=== PATIENT | male | born 1940 | race Caucasian/White ===

== ENCOUNTER → 2018-11-24 | Outpatient (CLI) | payer OTHER ==
[2018-11-24 16:23] LABS: Blood Urea Nitrogen 17 mg/dL (9-20)
--- NOTE | 2018-11-25 13:23 | CT ---
EXAMINATION TYPE: CT abdomen pelvis w con DATE OF EXAM: 11/24/2018 COMPARISON: MRCP 08/02/2014 HISTORY: 78-year-old male abnormal weight loss TECHNIQUE: Contiguous axial scanning of the abdomen and pelvis following administration of 100 ml Iso amber 300 IV contrast. Delayed images through the kidneys and coronal/sagittal reconstructions perform ed. CT DLP: 935.2 mGycm Automated exposure control for dose reduction was used. FINDINGS: Heart normal size without pericardial effusion. Tiny hiatal hernia. No focal liver lesion. 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 Portal venous system is patent. Some patulous jejunal loops just beyond the gastrojejunostomy measure up to 3.7 cm, probably chronic postoperative change. Adrenal glands, right kidney, and spleen appear within normal limits. 5 mm nonobstructive left lower pole renal calculus. Unremarkable appearance to the residual pancreatic body and tail. Scattered nonenlarged and borderline sized lymph nodes are present in the upper abdomen measuring up to 7 mm in the mid mesentery similar prominent lymph nodes appear to have been present back on the pa debra's 08/02/2014 MRI. There is a high riding cecum with moderate stool within. No pericolonic inflammatory change. No other dilated small bowel. No free fluid or free air. Tiny fatty umbilical hernia. Circumferential bladder wall thickening. Prostate gland measures 5.0 cm wide. Patulous bilateral ingu inal canals. No abnormal fluid collection of pelvis or pelvic lymphadenopathy. Moderate atherosclerotic calcifications within the infrarenal abdominal aorta and iliac arteries. Bones: Mild degenerative changes at the hips. Facet arthropathy mid to lower lumbar spine. Degenerati ve disc disease mid to lower lumbar spine. Trace grade 1 anterolisthesis L4-L5. Trace grade 1 retroli sthesis at L3-L4. IMPRESSION: 1. PRIOR SURGERY IN THE UPPER ABDOMEN SEEMS TO REPRESENT A WHIPPLE PROCEDURE. THERE ARE SOME MILDLY D ISTENDED PROXIMAL JEJUNAL LOOPS JUST BEYOND THE GASTROJEJUNOSTOMY measuring up to 3.7 cm LIKELY CHRON IC POSTOPERATIVE CHANGE. NO EVIDENCE FOR BOWEL OBSTRUCTION. 2. SCATTERED NONENLARGED AND BORDERLINE SIZE LYMPH NODES WITHIN THE MESENTERY MEASURING UP TO 7 MM. T HESE SEEM TO BE RELATIVELY SIMILAR BACK TO THE PATIENT'S 2013 MRI. CONSIDER A PRECAUTIONARY 6 MONTH F OLLOW-UP CT TO REASSESS. DIRECT COMPARISON TO THE SAME IMAGING MODALITY WILL BE HELPFUL. 3. TINY HIATAL HERNIA AND TINY FATTY UMBILICAL HERNIA. 4. CIRCUMFERENTIAL BLADDER WALL THICKENING COULD REPRESENT CHRONIC BLADDER WALL HYPERTROPHY OR CYSTIT IS. CLINICALLY CORRELATE. PROSTATE GLAND IS MILDLY ENLARGED AT 5.0 CM WIDE.
== END | disposition home or self-care (01) ==
LOC: RADCTMAIN 15:32
PROVIDERS: ATTEND Family Medicine
DX: R63.4 Abnormal weight loss (principal)
CPT/HCPCS: 82565; 84520; 74177; 36415; Q9967

== ENCOUNTER 2020-09-10 09:59 | Day surgery (SDC) | payer MEDICARE, OTHER ==
[2020-09-09 08:36] VITALS: BMI 25.9
[~2020-09-10 09:59] MED LIST: LACTATED RINGERS 1,000 ML IV SCH; LIDOCAINE 1% (10MG/ML) FOR IV START INTRADERMA PRN
[2020-09-10 10:37] VITALS: RESP 16; TEMP 97.2
[2020-09-10] MEDS ORDERED: LIDOCAINE 1% (10MG/ML) FOR IV START INTRADERMA ONE (10:38)
[2020-09-10] MEDS ORDERED: LACTATED RINGERS 1,000 ML IV ONE (10:38)
[2020-09-10] MEDS ORDERED: LIDOCAINE 1% INJ 10MG/ML (20 ML MDV) ONE (10:47)
[2020-09-10] MEDS ORDERED: PROPOFOL 10 MG/ML 20 ML VIAL IV ONE (10:47)
--- NOTE | 2020-09-10 10:59 | P.PCN ---
Date of Procedure: 09/10/20 Procedure(s) Performed: BRIEF HISTORY: Patient is a 80-year-old, pleasant, white male scheduled for an upper endoscopy dilation as a part of evaluation of intermittent dysphagia to solids and hence is a 40 pack she the last 1 year duration. An upper endoscopy in June 2020. The impaction and was noted to have distal esophageal stricture.. PROCEDURE PERFORMED: Esophagogastroduodenoscopy with dilation. PREOPERATIVE DIAGNOSIS: Recent episode of food impaction and intermittent dysphagia to solids. IV sedation per anesthesia. PROCEDURE: After informed consent was obtained, the patient was brought into the endoscopy unit. IV sedation was administered by Anesthesia under continuous monitoring. Initially the Olympus GIF-140 video endoscope was inserted into the mouth. Esophagus intubated without any difficulty. It was gradually advanced into the stomach and duodenum and carefully examined. The bulb and the second part of the duodenum appeared normal. The scope at this time was withdrawn to the stomach, adequately insufflated with air, and upon careful examination, mucosa of the antrum, body, cardia and the fundus appeared normal. The scope was then withdrawn into the esophagus. The GE junction was located at 39 cm from the incisors. There was a distal esophageal stricture identified and this was dilated using 12-15 mm TTS balloon in a sequential fashion for 90 seconds. Small hiatal hernia noted. There where a few erosions noted in the distal esophagus consistent with LA grade B reflux esophagitis. The rest of the esophagus appeared normal and the patient tolerated the procedure well. IMPRESSION: 1. Distal esophageal stricture status post balloon dilation using 12-15 mm TTS balloon as described above. 2. Small hiatal hernia. 3. LA grade B reflux esophagitis RECOMMENDATIONS: The findings of this examination were discussed with the patient as well as his family. He was advised to continue with Prilosec 20 mg daily and follow antireflux measures. He will remain on a clear liquid diet today. He'll be seen in office in 6 months..
[2020-09-10 11:29] VITALS: BP 127/81; PULSE 65
== END 2020-09-10 11:46 | disposition home or self-care (01) ==
LOC: ORWHC2ENDO 09:59
PROVIDERS: ATTEND Internal Medicine Gastroenterology
DX: K22.2 Esophageal obstruction (principal); K44.9 Diaphragmatic hernia without obstruction or gangrene; K21.00 Gastro-esophageal reflux disease with esophagitis, without bleeding; Z98.890 Other specified postprocedural states; Z88.0 Allergy status to penicillin; Z79.899 Other long term (current) drug therapy; Z88.7 Allergy status to serum and vaccine
CPT/HCPCS: 43249; J2001; J2704; C1726

== ENCOUNTER 2023-01-25 09:18 | Day surgery (SDC) | payer MEDICARE ==
[2023-01-21 10:27] VITALS: BMI 26.1
--- NOTE | 2023-01-25 06:27 | P.HPOR ---
History of Present Illness H&P Date: 01/19/23 .D:Date: 01/19/23 : 03:49pm .T:Title: [facility] Date of :41 R14 Allergies: Age: 82 year Height: 5'10" Weight: 182 lbs BP:/ BMI: 26.11 kg/m2 Occupation: VAS: CHIEF COMPLAINT: DOI: DOS: HISTORY : Xrays brought xrays from outside facility which were reviewed New xrays taken in office Trauma or injury yes Trauma Work-Related No Pain description sharp. Location posterior Activity Modification yes Hand Dominance right TREATMENTS COMPLETED: 6 weeks of PT completed? Month and Year of last PT date? No Physician directed home exercise completed? No Medications yes List:Mcadoo, Flexeril, Medrol Alternative interventions Chiropractic: No Massage therapy: No R.I.C.E: yes Brace: Yes LSO Did it help? yes Injections No RFA: No SUBJECTIVE: 82 yo male presents for evaluation of his low back after falling 4 ft off a ladder onto his back and right side. States he was cleaning and slipped and fell. Denies any BHT or LOC with the fall. C/o of significant back pain. This happened Tuesday last week he went to ED where he got XR from [facility] and a CT. He was given pain meds and follow up with us. He c/o signifiant low back pain that is made worse with any activity and at this time he has not slept in two days due to the pain being so severe. He states no numbness/tingling. No f/c/sob/cp. No perineal sx. States no radicular like sx. States pain in low back that is shart and severe 10/10. The patients' past social, medical, family, surgical history, as well as review of systems, have been reviewed. Please refer to the Neurosurgery History and Physical form that has been scanned in to our electronic medical record system. 14 points review of systems completed and as stated in HPI, all other systems reviewed are negative. Social History: Reviewed, see appropriate section of the chart for details. P3 Family History: Reviewed, see appropriate section of the chart for details. P2 Past Medical History: Reviewed, see appropriate section of the chart for details. P1 Current Medications: Rx: Mcadoo Ref: 0 P1 PHYSICAL EXAMINATION: General: Awake, alert, appropriate for age, in no acute distress. HEENT: No unusual neck masses around region of lateral neck triangle, thyroid, supraclavicular groove Extremities: Skin warm and dry without acute lesions, coloration, temperature, skin intact, no tenderness or erythema Integument: Hairy patches: ABSENT Dorsal skin dimples: ABSENT Cafe au lait spots: ABSENT Surgical incisions: none Palpation: Please see Pain drawing on Intake sheet for further detail. Midline spinal tenderness: YES TTP around L2 posterior E6 Cervical Tenderness: No E6 Paralumbar tenderness: YES severe ttp around the L1-2 region E6 Parathoracic tenderness: No E6 Buttocks tenderness: No E6 POSTURAL and MUSCULO-SKELETAL EVALUATION: Coronal Balance: NEUTRAL Recumbent testing: Patient is able to lay flat on back Sagittal Balance: NEUTRAL Shoulder Profile: LEVEL Pelvic Girdle: LEVEL Neck ROM: UNRESTRICTED Lumbar ROM: RESTRICTED due to pain Shoulder ROM: Symmetrical Hip ROM: Symmetrical Knee ROM: Symmetrical Hands: Normal appearance, symmetrical Feet: Normal appearance, Symmetrical VASCULAR STATUS : LEFT RIGHT Wrist Pulses INTACT INTACT Pedal Pulses (Dors. pedis & post.tibialis) INTACT INTACT Color NORMAL NORMAL Edema Absent Absent NEUROLOGIC EXAMINATION: Mental Status:Awake and alert, fully oriented, with normal attention, concentration and memory, and fluent, appropriate speech. Cranial Nerves: I: Olfactory not tested. II: Visual acuity normal, no visual field deficit noted with confrontation. III,IV: Normal pupillary reflexes & intact extraocular movements without nystagmus. V,: Intact symmetrical facial sensation. VII: Intact symmetrical facial motor movement VIII: Hearing intact. IX,X: Intact gag, swallow, & normal voice. XI: Sternocleidomastoid, trapezius function intact. XII: Tongue midline with normal movements. L'hermitte's Sign: Negative / absent Spurling'Sign: Absent bilaterally. Cubital percussion test: Absent bilaterally. Phipps-Tinel sign - Carpal region: Absent bilaterally. Straight Leg Raising: Absent bilaterally. Crossed straight leg raise: negative O8 MOTOR EXAM (0-5/5, N/T Muscle appearance: Symmetrical, without signs of atrophy or dystrophy UPPER EXTREMITY RIGHT LEFT Shoulder Abduction 5/5 5/5 Biceps 5/5 5/5 Triceps 5/5 5/5 Wrist Extension 5/5 5/5 Hand Intrnsics 5/5 5/5 Pathology Laboratory Aides Teacher 5/5 5/5 Hand and finger dexterity intact bilaterally? yes Disdiadochokinesis examination negative bilaterally? yes LOWER EXTREMITY RIGHT LEFT Hip Flexion 4/5 4/5 Knee Extension 4/5 4/5 Knee Flexion 4/5 4/5 Dorsiflexion 4/5 4/5 Plantarflexion 4/5 4/5 EHL 4/5 4/5 FHL 4/5 4/5 Toe heel walk / heel-toe walk intact while maintaining satisfactory balance? No Squatting/straightening w/o assistance to a min of 60 degree knee flexion? No Single leg stance: Cannot perform REFLEXES(0-4/2, NT)Upper Extremity Lower Extremity Right 2 2 Left 2 2 Pathological Reflexes RIGHT LEFT Phipps's Absent Absent Clonus Absent Absent Babinski Absent Absent Sensory system (0-4, N/T) Test type RU DARRIAN RL LL Joint-Position 2 2 2 2 Vibration 2 2 2 2 Pain & LT sense 2 2 2 2 Dermatomal Deficit: None None None None Gait and Functional Evaluation: Ambulatory aids: Independent Romberg's test: Intact bilaterally Unsteady painful gait due to fracture. RADIOGRAPHIC STUDIES: XRay Lumbar Multiview (AP, Lateral, Flexion, Extension) with AP pelvis; 5 views taken at on 01/19/23 of Lumbar Spine: Images reviewd Multilevel spondylosis noted with facet arthrosis and disc height and space collapse L2 vertebral compression fracture noted with 30% height loss of superior endplate with anterior wedging. Severe spondylosis of the remainder of the lower spine without instability. AP pelvis shows congruent level [facility] of Lumbar Spine: Images reviewd L2 wedge compression fracture noted 30% height loss with small anterior tear drop-like component Multilevel spondylosis noted with vacuum disc at L3-4 and L5-S1. No other instability or fractures ntoed. IMPRESSION: It was my pleasure to have seen and examined Caleb. I reviewed the patient's clinical syndrome, physical findings, and imaging studies during the appointment today. It is my impression that the patient has a diagnosis of. 1. L2 wedge compression fracture 30% height loss 2. Low back pain 3. s/p Fall off ladder 4 ft I outlined the natural course history without intervention and various interventional options. PLAN: Based on my findings I suggest the following course of action: - I discussed treatment options with the patient, including operative and non- operative options, and they have elected to proceed with the following surgical procedure: L2 kyphoplasty with biopsy The indications, risks, benefits, and alternatives to surgery were discussed with the patient and family at length. Specifically (but not limited to) the risks of infection, stiffness, recurrence of symptoms, need for revision surgery, local numbness, neurovascular injury, and blood clots were discussed. The patient's questions were answered. The decision to proceed was made. Consent will be obtained for the procedure. -Ambulate daily -Take medications as directed -Ice and rest for pain and swelling control. Surgical Procedure Risk Review Caleb Alonso is a 82 year old male presenting for evaluation of sudden onset of L2 fracture. It was my pleasure to have seen and examined Mr. Alonso. In our visit today we have had a chance to go over subjective complaints, physical examination findings and treatments, including the natural course history without intervention and various interventional options. The imaging dem onstrates L2 compression fracture 30% height loss with anterior wedging . On physical exam, Mr. Alonso demonstrates TTP about his low back midline with positive ballotment. Painful ROM. Difficulty with ADLs due to pain . I explained to the patient that as his condition progresses it could cause Continued pain and misery, possibly progressive symtpoms . At this time, based on the patients imaging and physical exam, I recommend surgery in the form or a: L2 kyphoplasy with biopsy . I discussed the risk and benefits of this procedure at length with Mr. Alonso. The patient and wifeagreed to consider pursuing the procedure mentioned above. Plan: 1. L2 kyphoplasty with biopsy 2. Follow up with PCP for surgical clearance 3. Review of surgical risks and benefits as well as an educational packet on the proposed surgical procedure. Risks: All surgical procedures come with inherent risks, including those related to positioning, anesthesia, intraoperative findings, and postoperative complications. It is important to understand that surgery does not come with any guarantee of a successful outcome as complications and adverse events are always possible. The patient was given a handout in office today discussing the surgical procedure and risks associated with the intervention, both of which were discussed with the patient. These risks include but are not limited to the following: ? Experiencing same, different or even worse symptoms in back, neck, arms, or legs compared to before surgery. ? Requiring further surgery or other forms of treatment presently or at some time in the future at same or other levels of the intended spine surgery. ? On an extreme but fortunately relatively rare basis severe complication such as blindness, stroke, heart attack, temporary and/or permanent nerve injury, paralysis, coma, or may occur, sometimes without known explanation. ? Surgical complications may include but are not limited to risk of infection, fluid accumulation in the surgical dissection site, including a seroma or hematoma, that requires additional surgery, wound drainage, bleeding, new numbness or weakness, vision changes/loss, spinal fluid leakage, non-healing and/or infected incision, headaches, difficulty or inability to swallow, h oarseness, hemopneumothorax, pneumothorax, impotence, retrograde ejaculation, vaginal dryness; injury to nerves, spinal cord, blood vessels, lymphatics or other vital organs (i.e., bowel injury, injury to the great vessels); heterotopic bone formation; complications related to the hardware such as screws, rods, cages including misplaced hardware, device failure, instrumentation at the wrong spine level, hardware fracture/breakage, or hardware loosening; vertebral failure of the spinal column above or below the newly placed hardware; retained surgical instrumentations or devices and the need for further surgery. ? Medical risks of the planned spine surgery include but are not limited to generalized Infections to the whole body or local areas outside of the surgical site (sepsis), heart attack, bleeding, anaphylaxis, meningitis, seizure, epilepsy, hearing loss, burn hernadez, laceration of the head or other areas of the body, bruising, hypersensitivity of the skin, bladder over distension; allergic reaction; shoulder injury related to positioning; fat, blood and air clots to other areas of the body like heart, lungs, brain; failure of internal organs such as lungs, kidneys, liver and excessive bleeding. If blood transfusions are necessary, note that transfusions may cause intolerance reactions such as anaphylaxis or other complex reactions. Despite best efforts, the results of spine surgery might not heal in terms of bone, soft tissues such as skin, fascia, ligaments, and joints. Additionally, in order to achieve best possible results, spine surgery may be carried out beyond the initially planned levels and involve decompression, fusion including insertion of hardware at levels other than the original intended area of surgical interest change some portions of the procedure in order to ensure the best possible outcomes. With spine surgery and spinal fusion, there are different off label uses of instrumentation (devices, implants and hardware) as well as biological substances (bone morphogenic proteins, demineralized bone matrix) as well as using extra bone from allograft sources (i.e. cadaver bone) or autograft (iliac crest bone, ribs, or the spine itself). The patient has been given information about these practices and their inherent risks and benefits. [facility] Assistants are medically trained surgical providers who function in the outpatient, inpatient, and operating room setting under the direct supervision of the attending surgeon.They assist in the operating room with direct supervision of the attending surgeons. The patient has had a chance to review all the listed information, has been given print outs detailing this information, and has had all his/her questions answered to their satisfaction. It was my pleasure to have seen and examined Mr. Alonso. In our visit today we have had a chance to go over my understanding of our patient's current condition, the natural course history without intervention and various interventional options. Questions were invited and answered, and the patient wishes to proceed as outlined above. I have seen and examined the patient for 25 minutes and we have spent more than 50% of the time in repeat and detailed counseling about the patient's condition, its natural course history with out and as much as can be predicted with surgery and re-review of various surgical treatment options. In conclusion,Mr. Alonso and his spouse/partner requested we proceed with the above suggested surgery and are willing to accept risks and limitations of the suggested surgery as nature of the disease process and our best attempts at treatment for the condition. Thank you again for allowing us to be part of your patient's care. Please don't hesitate to contact me if you have any further questions. Follow- up: Post OP Patient Education: (Informational booklet, instructions, etc) given at today's appointment: Yes .ED:Patient Education: Y Plan at next visit: X-ray Medications Reviewed: YES In our visit today Mr. Alonso and I have had a chance to go over my understanding of the patient's current condition, the natural course history without intervention and various interventional options. Questions were invited and answered, and the patient wishes to proceed as outlined above. I will be sure to keep you updated afterMr. Alonso returns here for further follow-up. Thank you again for your referral. Please do not hesitate to contact me if you have any further questions. Signed and authenticated by: Bigg Payan [facility] [address] [place] [address] This message is confidential, intended only for the named recipient(s) and may contain information that is privileged or exempt from disclosure under applicable law. If you are not the intended recipient(s), you are notified that the dissemination, distribution or copying of this information is strictly prohibited. If you received this message in error, please notify the sender then delete this message. #Orders: Pelvis xray #Orders: Spine, Lumbar, MV # SIGNED BY Bigg Sinclair (GOO)01/20/2023 07:42A Past Medical History Past Medical History: Cancer, Osteoarthritis (OA) Additional Past Medical History / Comment(s): PANCREATIC CANCER WITH WHIPPLE PROCEDURE, MULTIPLE SKIN CANCER LESIONS (MELANOMA X1)., OCCASIONAL DYSPHAGIA WITH EGD'S WITH DILATION, PANCREATITIS., RECENT FALL OFF LADDER WITH BACK FX.- WEARING BACK BRACE. History of Any Multi-Drug Resistant Organisms: None Reported Past Surgical History: Orthopedic Surgery Additional Past Surgical History / Comment(s): EGD'S WITH DILATION AND FOOD REMOVAL., MULTIPLE SKIN CANCERS REMOVED WITH NOSE RECONSTRUCTION. WHIPPLE 2004. LT ROTATOR CUFF SX. LT CARARACT REMOVED WITH LENS IMPLANT Past Anesthesia/Blood Transfusion Reactions: No Reported Reaction Past Psychological History: No Psychological Hx Reported Smoking Status: Former smoker Past Alcohol Use History: Rare Additional Past Alcohol Use History / Comment(s): QUIT SMOKING 30+ YEARS AGO, HX OF 1 PPD. Past Drug Use History: None Reported - Past Family History Father Family Medical History: Cancer, Osteoarthritis (OA) Additional Family Medical History / Comment(s): PROSTATE CANCER Mother Family Medical History: Cancer Additional Family Medical History / Comment(s): UTERINE CANCER Medications and Allergies Home Medications Medication Instructions Recorded Confirmed Type Ascorbic Acid [Vitamin C] 1,000 mg PO DAILY 01/21/23 01/21/23 History Aspirin 0.5 tab PO DAILY 01/21/23 01/21/23 History Cholecalciferol (Vitamin D3) 125 mcg PO DAILY 01/21/23 01/21/23 History [Vitamin D3 (125 MCG = 5,000 IU)] Docusate [Colace] 100 mg PO DIRECTED PRN 01/21/23 01/21/23 History Glucosam/Jerry-Msm1/C/Jb/Bosw 1 each PO DAILY 01/21/23 01/21/23 History [Wgwbusrkmtn-Eruujohetrc-YXO Tb] HYDROcodone/APAP 5-325MG [Mcadoo 1 tab PO Q6HR PRN 01/21/23 01/21/23 History 5-325] Krill/Om-3/Dha/Epa/Phospho/Ast 1 each PO 01/21/23 History [Krill Oil 500 mg Softgel] L.acidoph,Paracasei, B.lactis 1 each PO DAILY 01/21/23 01/21/23 History [Probiotic] Meloxicam 1 dose PO DIRECTED PRN 01/21/23 History Turmeric Root Extract [Turmeric] 1,000 mg PO DAILY 01/21/23 01/21/23 History Vit C/E/Cuperic/Zinc/Lutein 1 each PO BID 01/21/23 01/21/23 History [Preservision Lutein Softgel] Vitamin A Acetate [Vitamin A] 10,000 unit SL DAILY 01/21/23 01/21/23 History Zinc Gluconate [Zinc] 50 mg PO DAILY 01/21/23 01/21/23 History Allergies Allergy/AdvReac Type Severity Reaction Status Date / Time scallops Allergy Severe lip Verified 01/21/23 10:29 swelling with sores Black Diamond Seed Allergy Severe Anaphylaxis Verified 01/21/23 10:28 Penicillins Allergy Rash/Hives Verified 01/21/23 10:05 Tetanus Vaccines and Toxoid Allergy Swelling Verified 01/21/23 10:05 Seeds Allergy Severe no seeds Uncoded 01/21/23 10:29 due to severe sunflower seed allergy Physical Examination Osteopathic Statement: *. No significant issues noted on an osteopathic structural exam other than those noted in the History and Physical/Consult.
[~2023-01-25 09:18] MED LIST changes: +ACETAMINOPHEN TAB 500 MG TAB PO PRN; +DEXAMETHASONE SOD PHOSPHATE 4 MG/ML 1 ML VIAL IV ONE; +GABAPENTIN 300 MG CAP PO PRN; +HYDROmorphone 0.5 MG/0.5 ML SYRINGE IVP PRN; -LIDOCAINE 1% (10MG/ML) FOR IV START INTRADERMA PRN; +ONDANSETRON 4 MG/2 ML VIAL IVP ONE; +ONDANSETRON 4 MG/2 ML VIAL IVP PRN; +TRANEXAMIC 1,000 MG/100ML-NACL 1,000 MG in SALINE 1 100ML.BAG IVPB PRN
[2023-01-25] MEDS ORDERED: PROPOFOL 10 MG/ML 20 ML VIAL IV ONE (10:07)
[2023-01-25] MEDS ORDERED: KETAMINE 10 MG/ML 20 ML VIAL ONE (10:07)
[2023-01-25] MEDS ORDERED: MIDAZOLAM 2 MG/2 ML VIAL ONE (10:07)
[2023-01-25] MEDS ORDERED: LIDOCAINE 2% INJ 20 MG/ML (2 ML VIAL) ONE (10:07)
[2023-01-25] MEDS ORDERED: ePHEDrine 50 MG/ML 1 ML VIAL ONE (10:07)
[2023-01-25] MEDS ORDERED: TRANEXAMIC 1,000 MG/100ML-NACL PREMIX BAG ONE (10:07)
[2023-01-25] MEDS ORDERED: fentaNYL (PF) 50 MCG/ML 2 ML AMP ONE (10:07)
[2023-01-25] MEDS ORDERED: SUCCINYLCHOLINE CHLORIDE 200 MG/10 ML VIAL IV ONE (10:07)
[2023-01-25] MEDS ORDERED: PHENYLEPHRINE-0.9% NACL SYG 1,000 MCG/10 ML SYRINGE ONE (10:07)
[2023-01-25] MEDS ORDERED: IOPAMIDOL-370 100ML BTL INJ ONE (10:37)
[2023-01-25] MEDS ORDERED: BUPIVACAINE (PF) 0.25% 30 ML VIAL SQ ONE (10:46)
[2023-01-25] MEDS ORDERED: LIDOCAINE 2%-EPI 1:100,000 20 ML VIAL SQ ONE (10:47)
--- NOTE | 2023-01-25 11:03 | FL ---
EXAMINATION TYPE: FL guidance operating room, XR lumbar spine 2 or 3V DATE OF EXAM: 01/25/2023 Comparison: None Clinical History: 82-year-old male L1 KYPHOPLASTY Findings: Fluoroscopy during L2 kyphoplasty. FLUOROSCOPY Fluoroscopy time of 43 seconds was used during lumbar spine intervention procedure. 5 image/s docume nt/s the procedure. DOSE AREA PRODUCT (DAP) UGY*M,MGY*CM: 11.3 Impression: Procedure fluoroscopy as above.
[2023-01-25 11:10] VITALS: TEMP 97.2
[2023-01-25 12:21] VITALS: RESP 18
[2023-01-25] MEDS ORDERED: HYDROcodone/APAP 7.5-325MG 1 EACH TAB ONE (12:46)
[2023-01-25 12:52] VITALS: BP 147/89; PULSE 68
--- NOTE | 2023-01-28 08:06 | P.OP ---
Date of Procedure: 01/25/23 Preoperative Diagnosis: 1. L2 VCF 30% compression 2. Severe LBP 3. s/p fall off ladder Postoperative Diagnosis: 1. L2 VCF 30% compression 2. Severe LBP 3. s/p fall off ladder Procedure(s) Performed: 1. L2 kyphoplasty with biopsy Anesthesia: GWENDOLYN Surgeon: Bigg Sinclair Irish [employer] Operator #1: Rosendo Lacey Estimated Blood Loss (ml): 2 IV fluids (ml): 250 Urine output (ml): 0 Pathology: other (L2 vertebral body) Condition: stable Disposition: PACU Indications for Procedure: Caleb Alonso is a 82 year old male presenting for evaluation of sudden onset of L2 fracture. It was my pleasure to have seen and examined Mr. Alonso. In our visit today we have had a chance to go over subjective complaints, physical examination findings and treatments, including the natural course history without intervention and various interventional options. The imaging demonstrates L2 compression fracture 30% height loss with anterior wedging . On physical exam, Mr. Alonso demonstrates TTP about his low back midline with positive ballotment. Painful ROM. Difficulty with ADLs due to pain . I explained to the patient that as his condition progresses it could cause Continued pain and misery, possibly progressive symtpoms . At this time, based on the patients imaging and physical exam, I recommend surgery in the form or a: L2 kyphoplasy with biopsy . I discussed the risk and benefits of this procedure at length with Mr. Alonso. The patient and wifeagreed to consider pursuing the procedure mentioned above. Plan: 1. L2 kyphoplasty with biopsy Description of Procedure: L2 Kyphoplasty The patient was seen and examined in the preoperative area. All preoperative protocols were followed. Informed consent was obtained, risks and benefits of the procedure were discussed at length. Risks including bleeding infection damage to the surrounding tissue and risk of re-operation were discussed with the patient. Risk of anesthesia up to and including was discussed with the patient. These are outlined in the risk review. They were willing to accept these risks and all the risks of surgery. The patient was given a weight-based dose of antibiotics in the form of 2 g Ancef. The patient was seen and evaluated by the anesthesia team who deemed them fit for surgery. The site was marked, the patient was willing to proceed with the procedure. The patient was transferred to the operative suite by the Department of anesthesia. They were then drifted off to sleep by the department anesthesia and GETA was performed. The patient tolerated this well. Once confirmation of lines and ventilation the patient was transferred to a prone Warren table very carefully. All bony prominences including wrists, elbows, axilla, chest, hips, and thighs, and feet were padded very well. Special attention was paid to the genitalia, and these were padded accordingly. SCDs were placed on bilateral lower extremities and were connected. Arms were well padded and placed on arm boards up and out in the 90/90 position. Once in position, again we confirmed good ventilation capabilities and that lines were running appropriately. The patients Lumbar spine was then exposed. 1010s were placed outlining the incision site. Standard alcohol was used to clean the incision site and allowed to dry. C-arm was used to needle localize the pedicles at L2 and bio-michael the patient and confirm level for incision which was marked with a skin marker. Operative briefing was performed with all teams and everyone in agreement to proceed. The patient was then prepped and draped in a normal sterile fashion. Timeout was then performed, and all parties agreed with the procedure to be performed. Skin rik was made. Jamshitdi was passed into the L2 vertebral body via the pedicle. This was done with biplane fluoroscopy. Once in good position in the body the trochar removed. Biopsy needle was passed into the body and biopsy taken. Drill was then passed and biopsy material taken from drill as well. Curette then used to reduce endplate and create more space. Balloon was then passed an inflated which showed good reduction of endplate on AP and Lateral and confirmed central placement. The cement was then placed and pt remained stable. Good fill of cement was seen without extravasation. Once good fill, the Jamshedi was removed and the wound irrigated. The skin was closed with a simple stitch and dressed with a bandaid. The patient was then transferred off the table back to their hospital bed a- traumatically. They were extubated by the department of anesthesia. They were then transferred to PACU in stable condition having tolerated the procedure with no complications.
== END 2023-01-25 13:32 | disposition home or self-care (01) ==
LOC: OR 09:18
PROVIDERS: ATTEND Orthopaedic Surgery
DX: S32.020A Wedge compression fracture of second lumbar vertebra, initial encounter for closed fracture (principal); W11.XXXA Fall on and from ladder, initial encounter; M19.90 Unspecified osteoarthritis, unspecified site; Z85.820 Personal history of malignant melanoma of skin; Z85.07 Personal history of malignant neoplasm of pancreas; Z85.828 Personal history of other malignant neoplasm of skin; F10.20 Alcohol dependence, uncomplicated; Z87.891 Personal history of nicotine dependence; Z82.61 Family history of arthritis; Z79.82 Long term (current) use of aspirin; Z79.899 Other long term (current) drug therapy; Z88.0 Allergy status to penicillin; Z91.018 Allergy to other foods; Z88.7 Allergy status to serum and vaccine
CPT/HCPCS: 22514; 88307; 88311; 72100; J2250; J0330; J1100; J0690; J2405; J3010; J2370; J2704; J1170; Q9967; J2001